=== PATIENT | female | born 1985 | race Caucasian/White ===

== ENCOUNTER 2017-05-17 13:15 | Emergency (ER) | payer MEDICAID ==
--- NOTE | 2017-05-17 13:31 | Emergency Department Record ---
History of Present Illness - General Chief Complaint: Headache Migraine Stated Complaint: MIGRAINE AND EAR PAIN Time Seen by Provider: 05/17/17 13:22 Source: Patient Mode of Arrival: Ambulatory Limitations: No limitations - History of Present Illness Initial Comments: 31 yo female presents with a headache and ear pain bilateral. 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 She states she experiences very frequent headache. She had been of her medications for a period of time due to insurance issues. Her symptoms worsened during that interval. She restated her medication in the last week but her symptoms have persisted. She also develops a right facial weakness and twitch when her symptoms worsen. No swallow difficulties. She reports that Dr Sanabria is her neurologist. She has undergone testing the past including CT scans , MRI's, and flour guided LP. Today she requests no testing, no imaging, no LP , no transfer but requests drops for the ears and a course of steroids. She is very up front about absolutely will not agree to an LP under any circumstances. She states she feels aware of her symptoms and will not consent to any of those treatments or tests. She explained that she understands the possibility of permanent injury by her course of decision making. Complaint: Headache Onset/Timin -: Days(s) Onset Description: Gradual Location: Other Severity: Moderate Severity scale (1-10): 8 Quality: Sharp Consistency: Constant, Intermittent Improves With: Other Worsens With: None Treatments Prior to Arrival: None - Related Data Home Medications Medication Instructions Recorded Confirmed Last Taken Topiramate [Topiramate ER] 200 mg PO ASDIR 05/17/17 05/17/17 Unknown Previous Rx's Medication Instructions Recorded Prednisone [Prednisone 20Mg] 20 mg PO BID #10 tab 05/17/17 Allergies Allergy/AdvReac Type Severity Reaction Status Date / Time azithromycin Allergy SWELLING Verified 05/17/17 13:25 (GENERAL) Travel Screening - Travel/Exposure Within Last 30 Days Have you traveled within the last 30 days?: No Review of Systems Constitutional: Denies: Chills, Fever, Malaise, Night sweats, Weakness Eyes: Reports: Eye pain, Photophobia, Vision change. Denies: Eye discharge ENT: Denies: Congestion, Throat pain Respiratory: Denies: Cough, Dyspnea, Hemoptysis, Stridor, Wheezes Cardiovascular: Denies: Chest pain, Palpitations, Syncope Endocrine: Denies: Fatigue, Polydipsia, Polyuria Gastrointestinal: Reports: Nausea. Denies: Abdominal pain, Diarrhea, Vomiting Genitourinary: Denies: Dysuria, Urgency Musculoskeletal: Denies: Arthralgia, Back pain, Joint swelling, Myalgia, Neck pain Skin: Denies: Bruising, Change in color, Rash Neurological: Reports: Headache, Weakness. 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 negative: Normal appearance, Conjunctival injection, Periorbital swelling, Periorbital tenderness, Scleral icterus Pupils: Other (limited fundi exam but small visualized right optic nerve is less distinct than the left) - ENT ENT exam: Normal exam, Mucous membranes moist Ear exam: Normal external inspection Nasal Exam: Normal inspection Mouth exam: Normal external inspection Teeth exam: Normal inspection - Neck Neck exam: Normal inspection, Full ROM. negative: Lymphadenopathy, Meningismus , Tenderness, Thyromegaly - Respiratory Respiratory exam: Normal lung sounds bilaterally. negative: Respiratory distress - Cardiovascular Cardiovascular Exam: Regular rate, Normal rhythm, Normal heart sounds Peripheral Pulses: 2+: Radial (R), Radial (L) - GI/Abdominal GI/Abdominal exam: Soft, Other (morbidly obese). negative: Tenderness - Rectal Rectal exam: Deferred - exam: Deferred - Extremities Extremities exam: Normal inspection, Normal capillary refill. negative: Full ROM, Pedal edema, Tenderness - Back Back exam: Reports: Normal inspection, Full ROM. Denies: Muscle spasm, Rash noted, Tenderness - Neurological Neurological exam: Alert, Motor sensory deficit, Oriented X3, Reflexes normal, Other (slight facial asymmetry with asymmetric lid closure with blink, lids fully close with full strength, smile is symmetric, clear voice, no forehead weakness, normal FTN, normal LAVELL, no PND, ). negative: Abnormal gait, Altered, CN II-XII intact, Normal gait - Psychiatric Psychiatric exam: Normal affect, Normal mood - Skin Skin exam: Dry, Intact, Normal color, Warm Course Vital Signs 05/17/17 13:19 Temperature 97.8 F Pulse Rate 83 Respiratory 20 Rate Blood Pressure 172/119 Pulse Ox 97 - Reevaluation(s) Reevaluation #1: Vitals reviewed. BP noted. 05/17/17 13:25 05/17/17 13:55 I had a very long conversation with the patient regarding her symptoms, her history regarding her diagnosis and treatment of he NPH. I strongly recommended testing and imaging at [facility] then transfer to [facility] or her hospital of choice to treat her condition as it can lead to permanent disability or neurologic injury. She explained very clearly that she understands my concerns and understands the potential consequences. She will not under any circumstances consent to imaging, transfer, LP. She request ear dropa and steroids as this typically helps. I explained that the diagnosis is likely her NPH but other diagnosis are possible too. She understands and will sign out AMA. She states she understands signing out AMA assumes the risk of leaving with the knowledge she is responsible for possible injury or disability - Consultations Consultation #1: [facility] radiology records requests and obtained 06/29/14 MRI Brain w and WO: Normal 09/06/14 MRA WO: Normal 09/15/14 CTA head and neck W: Transverse Sinus narrowing >50% suggest idiopathic intracranial hypertension 10/25/14 CT Head and Orbits W and WO: optic nerve ectasia, concern for idiopathic intracranial hypertension Disposition Disposition: Discharge Clinical Impression: Headache, (Idiopathic) normal pressure hydrocephalus Disposition: Against Medical Advice Condition: (3) Guarded Instructions: Acute Headache (ED), Against Medical Advice (ED) Additional Instructions: Seek medical attention immediately if worse You are signing out AMA taking on a risk of permanent injury or disability without treatment, testing, transfer to a hospital with neurologists Call your doctor Friday You blood pressure will need to be rechecked as well Friday or sooner Prescriptions: Prednisone [Prednisone 20Mg] 20 mg PO BID #10 tab Forms: Patient Portal Access Time of Disposition: 14:01 Quality - Quality Measures Quality Measures: N/A - Blood Pressure Screening View Details: Yes Blood Pressure Classification: Hypertensive Reading Systolic Measurement: 172 Diastolic Measurement: 119 Screening for High Blood Pressure: < Pre-Hypertensive BP, F/U Documented > [ G8950] Pre-Hypertensive Follow-up Interventions: Referral to alternative/primary care provider. First Hypertensive Follow-up Interventions: Follow-up with rescreen GT 1 day and LT 4 weeks.
[2017-05-17] MEDS ORDERED: NEOMYCIN/POLYMYXIN B SULF/HC 10ML BTL OT ONE (13:45)
[2017-05-17] MEDS ORDERED: PREDNISONE 20 MG TAB PO ONE (13:45)
== END 2017-05-17 14:17 | disposition left against medical advice (07) ==
LOC: ER 13:15
DX: R51 Headache (principal); G91.2 (Idiopathic) normal pressure hydrocephalus; H92.03 Otalgia, bilateral
CPT/HCPCS: 99283 ×2; J7512

== ENCOUNTER 2018-11-08 04:46 | Emergency (ER) | payer MEDICAID ==
[2018-11-08] MEDS ORDERED: PREDNISONE 20 MG TAB PO ONE (05:00)
[2018-11-08] MEDS ORDERED: AZITHROMYCIN 500 MG TABLET PO ONE (05:00)
--- NOTE | 2018-11-08 05:06 | Emergency Department Record ---
History of Present Illness - General Chief Complaint: Cough Stated Complaint: COUGH Time Seen by Provider: 11/08/18 05:00 Source: Patient Mode of Arrival: Ambulatory Limitations: No limitations - History of Present Illness Initial Comments: 33 yo female presents to ED for evaluation of non-productive cough [id number] for the past several days. Patient denies fevers or chills, reports a history of asthma. Patient reports that she experiences URI symptoms frequently, but has progressed to pneumonia annually. Patient reports "keflex and prednisone seem to usually help". MD Complaint: Cough Onset/Timin -: Days(s) Severity: Moderate Quality: Aching Consistency: Constant Improves With: Nothing Worsens With: Deep breaths Associated Symptoms: Denies other symptoms Treatments Prior to Arrival: None - Related Data Home Medications Medication Instructions Recorded Confirmed Last Taken Albuterol Sulfate 0.083% [Neb] 3 ml NEB .EVERY 4-6 HOURS PRN 11/08/18 11/08/18 Unknown [Albuterol Sulfate] Previous Rx's Medication Instructions Recorded Azithromycin [Zithromax] 250 mg PO DAILY #4 tab 11/08/18 Prednisone [Prednisone 20Mg] 20 mg PO BID #8 tab 11/08/18 Allergies Allergy/AdvReac Type Severity Reaction Status Date / Time azithromycin Allergy SWELLING Verified 05/17/17 13:25 (GENERAL) Travel Screening - Travel/Exposure Within Last 30 Days Have you traveled within the last 30 days?: No - Travel Symptoms Symptom Screening: None Review of Systems Constitutional: Denies: Chills, Fever, Malaise, Night sweats Eyes: Denies: Eye discharge, Eye pain ENT: Denies: Congestion, Ear pain, Epistaxis Respiratory: Reports: Cough. Denies: Dyspnea Cardiovascular: Denies: Chest pain, Palpitations Endocrine: Denies: Fatigue, Heat or cold intolerance Gastrointestinal: Denies: Abdominal pain, Nausea, Vomiting Genitourinary: Denies: Incontinence, Retention Musculoskeletal: Denies: Arthralgia, Back pain Skin: Denies: Bruising, Change in color Neurological: Denies: Abnormal gait, Confusion, Headache, Seizure Psychiatric: Denies: Anxiety Hematological/Lymphatic: Denies: Anemia, Blood Clots Past Medical History - SOCIAL HISTORY Smoking Status: Never smoker Alcohol Use: None Drug Use: None - RESPIRATORY Hx Respiratory Disorders: Yes Hx Asthma: Yes - CARDIOVASCULAR Hx Cardio Disorders: No - NEURO Hx Neuro Disorders: No 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 - GI Hx GI Disorders: No - Hx Genitourinary Disorders: No - ENDOCRINE Hx Endocrine Disorders: No - MUSCULOSKELETAL Hx Musculoskeletal Disorders: No - PSYCH Hx Psych Problems: No - HEMATOLOGY/ONCOLOGY Hx Hematology/Oncology Disorders: No Family Medical History Any Significant Family History?: Yes Hx Heart Disease: Grandparents Hx Resp Disorders: Father Physical Exam - General General Appearance: Alert, Oriented x3, Cooperative, Mild distress Limitations: No limitations - Head Head exam: Atraumatic, Normocephalic, Normal inspection Head exam detail: negative: Abrasion, Contusion, Zuniga's sign, General tenderness, Hematoma, Laceration - Eye Eye exam: Normal appearance. negative: Conjunctival injection, Periorbital swelling, Periorbital tenderness, Scleral icterus - ENT Ear exam: negative: Auricular hematoma, Auricular trauma Nasal Exam: negative: Active bleeding, Discharge, Dried blood, Foreign body Mouth exam: negative: Drooling, Laceration, Muffled voice, Tongue elevation - Neck Neck exam: Normal inspection. negative: Meningismus, Tenderness - Respiratory Respiratory exam: Normal lung sounds bilaterally. negative: Rales, Respiratory distress, Rhonchi, Stridor - Cardiovascular Cardiovascular Exam: Regular rate, Normal rhythm, Normal heart sounds - GI/Abdominal GI/Abdominal exam: Soft. negative: Rebound, Rigid, Tenderness - Rectal Rectal exam: Deferred - exam: Deferred - Extremities Extremities exam: Normal inspection. negative: Calf tenderness, Pedal edema, Tenderness - Back Back exam: Denies: CVA tenderness (R), CVA tenderness (L) - Neurological Neurological exam: Alert, Normal gait, Oriented X3 - Psychiatric Psychiatric exam: Normal affect, Normal mood - Skin Skin exam: Normal color. negative: Abrasion Type of lesion: negative: abrasion Course Vital Signs 11/08/18 04:51 Temperature 97.6 F Pulse Rate 95 H Respiratory 24 Rate Blood Pressure 120/91 Pulse Ox 99 Disposition Disposition: Discharge Clinical Impression: Acute bronchitis Qualifiers: Bronchitis organism: unspecified organism Qualified Code(s): J20.9 - Acute bronchitis, unspecified Disposition: Home, Self-Care Condition: (2) Stable Instructions: Acute Bronchitis (ED) Additional Instructions: Return to ED if your symptoms worsen or if you have any concerns. Prednisone and Zithromax as directed. Follow-up with your family doctor in 3-5 days as directed. Prescriptions: Azithromycin [Zithromax] 250 mg PO DAILY #4 tab Prednisone [Prednisone 20Mg] 20 mg PO BID #8 tab Time of Disposition: 05:06 Quality - Quality Measures Quality Measures: N/A - Blood Pressure Screening Does Patient Have Any of the Following: No Blood Pressure Classification: Hypertensive Reading Systolic Measurement: 120 Diastolic Measurement: 91 Screening for High Blood Pressure: < First Hypertensive BP, F/U Documented > [ G8950] First Hypertensive Follow-up Interventions: Referral to alternative/primary care provider.
== END 2018-11-08 05:15 | disposition home or self-care (01) ==
LOC: ER 04:46
DX: J20.9 Acute bronchitis, unspecified (principal)
CPT/HCPCS: 99282; J7512